=== PATIENT | male | born 1980 | race Caucasian/White ===

== ENCOUNTER 2019-11-28 22:48 | Emergency (ER) | payer BC, OTHER ==
--- NOTE | 2019-11-29 00:45 | ER Document Report ---
ED Medical Screen (RME) - General Stated Complaint: SHAKING/DIFFICULT IN BREATHING Time Seen by Provider: 11/29/19 00:37 Mode of Arrival: Ambulatory Information source: Patient Notes: Otherwise healthy 39-year-old male presents the emergency department concern for an episode of shaking, heightened anxiety and elevated blood pressure. Patient reports he believes he has had a panic attack in the past. He states that he is currently feeling much better and believes this may be what happened. He denies any specific stressors tonight although he is getting ready for deployment. He states he is very much looking forward to that appointment so he does not think that would cause him any stress. Patient denies any chest pain or shortness of breath. Patient is alert, oriented, no acute distress noted. EKG was reviewed by me, shows a sinus rhythm, no ectopy, no ST segment elevations or depressions to suggest ischemia. I have greeted and performed a rapid initial assessment of this patient. A comprehensive ED assessment and evaluation of the patient, analysis of test results and completion of the medical decision making process will be conducted by additional ED providers. I have specifically instructed the patient or family members with the patient to immediately return to any nursing staff should anything change in the patient's condition or with their chief complaint. - Related Data Allergies/Adverse Reactions: No Known Allergies Allergy (Verified 11/29/19 00:37) Physical Exam - Vital signs Vitals: Temp Pulse Resp BP Pulse Ox 98.4 F 85 16 185/82 H 100 11/28/19 23:03 11/28/19 23:03 11/28/19 23:03 11/28/19 23:03 11/28/19 23:03 Course - Vital Signs Vital signs: Temp Pulse Resp BP Pulse Ox 98.4 F 85 16 185/82 H 100 11/28/19 23:03 11/28/19 23:03 11/28/19 23:03 11/28/19 23:03 11/28/19 23:03
[2019-11-29 01:13] LABS: ABSOLUTE EOSINOPHILS # (AUTO) 0.1 10^3/uL (0.0-0.6); ABSOLUTE LYMPHOCYTES (AUTO) 1.3 10^3/uL (0.5-4.7); ABSOLUTE MONOCYTES (AUTO) 0.7 10^3/uL (0.1-1.4); ABSOLUTE NEUT (AUTO) 3.8 10^3/uL (1.7-8.2); BASOPHILS % (AUTO) 0.6 % (0-2); EOSINOPHILS % (AUTO) 1.4 % (0-6); HEMOGLOBIN 14.4 g/dL (13.5-17.0); LYMPHOCYTES % (AUTO) 22.1 % (13-45); MEAN CORPUSCULAR HEMOGLOBIN 30.2 pg (27.0-33.4); MEAN CORPUSCULAR HGB CONC 34.4 g/dL (32.0-36.0); MEAN CORPUSCULAR VOLUME 88 fl (80-97); PLATELET COUNT 232 10^3/uL (150-450); RED BLOOD COUNT 4.78 10^6/uL (4.35-5.55); SEGMENTED NEUTROPHILS % (AUTO) 64.9 % (42-78); TOTAL CELLS COUNTED % (AUTO) 100 %; WHITE BLOOD COUNT 5.9 10^3/uL (4.0-10.5)
[2019-11-29 01:24] LABS: ALBUMIN 4.8 g/dL (3.5-5.0); ALKALINE PHOSPHATASE 79 U/L (38-126); ANION GAP 7 (5-19); ASPARTATE AMINO TRANSFERASE 40 U/L (17-59); BILIRUBIN,TOTAL 0.4 mg/dL (0.2-1.3); BLOOD UREA NITROGEN 18 mg/dL (7-20); CALCIUM 9.4 mg/dL (8.4-10.2); CARBON DIOXIDE 32 mmol/L (22-30); CHLORIDE 99 mmol/L (98-107); GLUCOSE 119 mg/dL (75-110); POTASSIUM 4.3 mmol/L (3.6-5.0); TOTAL PROTEIN 7.8 g/dL (6.3-8.2)
[2019-11-29 02:52] VITALS: BP 164/72
[2019-11-29] MEDS ORDERED: ONDANSETRON ODT 4 MG TAB (6 TAB/ER DISP) PO PRN (03:46)
--- NOTE | 2019-11-29 03:48 | ER Document Report ---
ED General - General Chief Complaint: Anxiety Stated Complaint: SHAKING/DIFFICULT IN BREATHING Time Seen by Provider: 11/29/19 00:37 Mode of Arrival: Ambulatory Notes: Patient is a 39-year-old male with no past medical history who presents to the emergency department with a possible anxiety/panic attack. Patient states that he has had panic attacks in the past. Patient is currently waiting to go on deployment. He states that he will leave anytime. Patient also reports that he ate some [place] food that could have made him sick to his stomach. Patient denies any vomiting. He states that he feels better and feels his symptoms have gone away. Patient denies any suicidal or homicidal ideation. - Related Data Allergies/Adverse Reactions: No Known Allergies Allergy (Verified 11/29/19 00:37) Past Medical History - General Information source: Patient - Social History Smoking Status: Never Smoker Frequency of alcohol use: Occasional Drug Abuse: None Family History: Reviewed & Not Pertinent Review of Systems - Review of Systems Notes: REVIEW OF SYSTEMS: CONSTITUTIONAL : Denies recent illness. Denies recent unintentional weight loss. Denies fever, chills, or sweats. EENT: Denies eye, ear, throat, or mouth pain, discharge, or symptoms. Denies nasal or sinus congestion. CARDIOVASCULAR: Denies chest pain. RESPIRATORY: Denies shortness of breath, cough, congestion, difficulty breathing, or wheezing. GASTROINTESTINAL: Denies nausea, vomiting, and diarrhea. Denies abdominal pain. Denies constipation. GENITOURINARY: See HPI. MUSCULOSKELETAL: Denies neck and back pain. Denies joint pain or swelling. SKIN: Denies rash, itchiness, or lesions HEMATOLOGIC : Denies easy bruising or bleeding. LYMPHATIC: Denies swollen, painful, enlarged glands. NEUROLOGICAL: Denies no numbness or tingling denies weakness. Denies headache. Denies altered mental status. Denies alteration in speech. PSYCHIATRIC: See HPI. All other systems reviewed and negative. Physical Exam - Vital signs Vitals: Temp Pulse Resp BP Pulse Ox 98.4 F 85 16 185/82 H 100 11/28/19 23:03 11/28/19 23:03 11/28/19 23:03 11/28/19 23:03 11/28/19 23:03 - Notes Notes: PHYSICAL EXAMINATION: GENERAL: Appears well, healthy, well-nourished, no acute distress. HEAD: Normocephalic, atraumatic. EYES: PERRL, conjunctiva normal, all extraocular movements intact, sclera nonicteric ENT: Moist mucous membranes. NECK: Supple, no noticeable swelling, redness, rash. Normal range of motion. LUNGS: Equal breath sounds bilaterally and clear to auscultation. No wheezes rales or rhonchi. CARDIOVASCULAR: S1-S2, regular rate, regular rhythm. Radial pulses 2+, normal. ABDOMEN: Normoactive bowel sounds. Soft, nontender, no guarding, no rebound tenderness, and no masses palpated. EXTREMITIES: Normal strength and range of motion, no pitting or edema. No cyanosis. NEUROLOGICAL: Moves all extremities upon command. Strength 5/5 in all extremities. PSYCH: Normal mood, normal affect. SKIN: Warm, dry. No rash, lesions, ulcerations noted. Normal skin turgor. Course - Re-evaluation Re-evalutation: 11/29/19 03:46 Patient's hematology is unremarkable. Chemistries are normal. LFTs are also normal. Patient has not vomited and he states it feels better. We will send him home with Zofran just in case he has had some food poisoning from his [place] food he ate. He is in agreement with this plan. I have a low suspicion for any life-threatening etiology at this time. Follow-up precautions were given. Verbal discharge instructions were given to the patient. They verbalized understanding. They are stable for discharge. - Vital Signs Vital signs: Temp Pulse Resp BP Pulse Ox 98.5 F 86 16 164/72 H 100 11/29/19 02:51 11/29/19 02:51 11/29/19 02:51 11/29/19 02:51 11/29/19 02:51 - Laboratory Result Diagrams: 11/29/19 00:57 11/29/19 00:57 Laboratory results interpreted by me: 11/29/19 00:57 Carbon Dioxide 32 H Glucose 119 H Discharge - Discharge Clinical Impression: Upset stomach Condition: Stable Disposition: HOME, SELF-CARE Instructions: Anxiety (OM) Additional Instructions: You were seen today in the emergency department for not feeling well after eating [place] food and some anxiety. Your labs are normal. You are being sent home with Zofran, which is nausea medication. You can take 1 tablet every 4-6 hours as needed for any nausea or vomiting.
--- NOTE | 2019-11-29 14:18 | EKG REPORT ---
SEVERITY:- NORMAL ECG - SINUS RHYTHM : Confirmed by: Tyrone Live MD 29-Nov-2019 14:18:07
== END 2019-11-29 04:10 | disposition home or self-care (01) ==
LOC: ER 22:48
DX: R19.8 Other specified symptoms and signs involving the digestive system and abdomen (principal)
CPT/HCPCS: 36415; 80053; 85025; 93005; 93010; 99283